=== PATIENT | male | born 1945 | race African-American/Black ===

== ENCOUNTER 2024-10-04 11:43 | Emergency (ER) | payer OTHER, MEDICAID ==
[~2024-10-04] VITALS: Ht 180.3 cm; Wt 95.5 kg
[2024-10-04 12:15] LABS: Basophils # (auto) 0.3 10 ^3/uL (0-0.2); Basophils % (auto) 1.8 % (0.0-2.0); Eosinophils # (auto) 0.3 10 ^3/uL (0-0.8); Eosinophils % (auto) 1.7 % (0.0-7.0); Hematocrit 42.3 % (41.0-53.0); Hemoglobin 13.2 g/dL (13.5-17.5); Lymphocytes # (auto) 2.7 10 ^3/uL (0.4-5.4); Lymphocytes % (auto) 18.1 % (10.0-50.0); Mean Corpuscular Hemoglobin 22.7 pg (28.0-32.0); Mean Corpuscular Hgb Conc. 31.3 g/dL (32.0-36.0); Mean Corpuscular Volume 72.5 fL (80.0-100.0); Monocytes # (auto) 1.4 10 ^3/uL (0-1.3); Neutrophils # (auto) 10.5 10 ^3/uL (1.6-8.6); Neutrophils % (auto) 69.4 % (37.0-80.0); Nucleated Red Blood Cells % 0.1 %; Platelet Count (auto) 239 10^3/uL (140-450); Red Blood Cells 5.84 10^6/uL (4.5-5.90); White Blood Cell 15.1 10^3/uL (4.4-10.8)
[2024-10-04 12:16] LABS: Red Cell Distribution Width 21.8 % (11.8-14.3)
--- NOTE | 2024-10-04 12:21 | ED.PDOC ---
Eye-HPI HPI Comments 79y F who presents to the ED for chief complaint of eye pain. - pt states he has been having throbbing pain in L eye pain since yesterday AM - pt states he started to have L eye pain again this AM and came to [facility] urgent care for further evaluation - pt states he was referred to [facility] from urgent care for evaluation for eye pre ssure in his L eye - pt in the ED, denies any changes in vision, but states he has pain when attempting to read - pt otherwise is alert and oriented x4 and no changes in vision, speech or gait is noted - pt also had cataracts surgery 2 days prior - pt otherwise denies any other symptoms at this time PMH: HTN, HLD, PSH: L leg surgery, cataracts meds: ASA, atenolol, amlodipine allergies: nkda social history: denies ETOH use, denies tobacco use, denies drug use Chief Complaint: Eye Problem Time Seen by MD: 12:00 Reviewed Notes: Medications, Allergies Allergies: Coded Allergies: NSAIDs (Verified Allergy, Unknown, 10/04/24) Information Source: Patient Mode of Arrival: Ambulatory Brought in by: self Was a procedure done? Was a procedure done?: No X-Ray, Labs, Meds, VS Vital Signs Date Time Temp Pulse Resp B/P (MAP) Pulse Ox O2 Delivery O2 Flow Rate FiO2 10/04/24 16:20 68 16 97 Room Air* 0 21 10/04/24 16:20 98.5 68 16 158/73 (101) 97 98.5 10/04/24 12:29 97.9 60 16 149/80 (103) 97 97.9 Lab Test 10/04/24 16:15 10/04/24 15:33 10/04/24 12:52 10/04/24 12:04 Range/Units Urine Color Pending Urine Clarity Pending Urine pH Pending Urine Specific [place] Pending Urine Protein Pending Urine Ketones Pending Urine Blood Pending Urine Nitrite Pending Urine Bilirubin Pending Urine Urobilinogen Pending Urine Leukocyte Esterase Pending Urine RBC Pending Urine Microscopic WBC Pending Urine Squamous Epithelial Cells Pending Urine Bacteria Pending Urine Glucose Pending Troponin I High Sensitivity 9 8 10 </=54 ng/L White Blood Count 15.1 H 4.4-10.8 10^3/uL Red Blood Count 5.84 4.5-5.90 10^6/uL Hemoglobin 13.2 L 13.5-17.5 g/dL Hematocrit 42.3 41.0-53.0 % Mean Corpuscular Volume 72.5 L 80.0-100.0 fL Mean Corpuscular Hemoglobin 22.7 L 28.0-32.0 pg Mean Corpuscular Hemoglobin Concent 31.3 L 32.0-36.0 g/dL Red Cell Distribution Width 21.8 H 11.8-14.3 % Platelet Count 239 140-450 10^3/uL Mean Platelet Volume 8.4 6.9-10.8 fL Neutrophils (%) (Auto) 69.4 37.0-80.0 % Lymphocytes (%) (Auto) 18.1 10.0-50.0 % Monocytes (%) (Auto) 9.0 0.0-12.0 % Eosinophils (%) (Auto) 1.7 0.0-7.0 % Basophils (%) (Auto) 1.8 0.0-2.0 % Neutrophils # (Auto) 10.5 H 1.6-8.6 10 ^3/uL Lymphocytes # (Auto) 2.7 0.4-5.4 10 ^3/uL Monocytes # (Auto) 1.4 H 0-1.3 10 ^3/uL Eosinophils # (Auto) 0.3 0-0.8 10 ^3/uL Basophils # (Auto) 0.3 H 0-0.2 10 ^3/uL Nucleated Red Blood Cells 0.1 % Lactic Acid Level 1.6 0.4-2.0 mmol/L Test 10/04/24 11:50 Range/Units Sodium Level 141 136-145 mmol/L Potassium Level 4.3 3.5-5.1 mmol/L Chloride Level 112 H 98-107 mmol/L Carbon Dioxide Level 23 20-31 mmol/L Anion Gap 6 5-15 Blood Urea Nitrogen 21 9-23 mg/dL Creatinine 3.17 H 0.700-1.30 mg/dL Glomerular Filtration Rate Calc 19 >90 mL/min BUN/Creatinine Ratio 6.6 L 10.0-20.0 Serum Glucose 97 74-106 mg/dL Calcium Level 9.9 8.7-10.4 mg/dL Total Bilirubin 0.4 0.2-1.0 mg/dL Aspartate Amino Transferase (AST) 16 13-40 U/L Alanine Aminotransferase (ALT) 15 7-40 U/L Alkaline Phosphatase 120 H 46-116 U/L Total Protein 7.4 5.7-8.2 g/dL Albumin 4.4 3.2-4.8 g/dL [facility] [id number] [facility] [address] Ph: [phone] DIAGNOSTIC IMAGING Diagnostic Imaging Report : [id number] Signed PATIENT: DIONTE COREA ACCT: [id number] UNIT: [id number] : 1945 LOC: ER ROOM / BED: / AGE / SEX: 79 / M ADM STATUS: REG ER SERVICE 1150 ORDERING PHYSICIAN: AMY WESLEY DO PROCEDURE(s): CXRP - CHEST PORTABLE REASON: htn ORDER NUMBER(s): [id number], ACCESSION NUMBER(s): [id number] CHEST RADIOGRAPH Indication: htn Technique: Single frontal view of the chest was obtained Comparison: None FINDINGS: Lines and Tubes: None Lungs: No focal consolidation. Pleura: No effusion. No pneumothorax. Cardiomediastinal contours: Unremarkable Bones: No acute osseous abnormality. IMPRESSION: 1. No acute cardiopulmonary disease. ATED BY: ISAÍAS CRESPO MD DICTATED DATE/TIME: 10/04/24 1237 SIGNED BY: ISAÍAS CRESPO MD SIGNED DATE/TIME: 10/04/24 1237 CC: Time of 1ST Reevaluation: 15:17 (The case was discussed with the [facility] admitting team (HPI, physical exam, labs and diagnostic tests that were available at the time of disposition, ED course, treatment plan) on the phone. They attempted to transfer the patient to their facility but the ER is closed. They contacted their business solutions architect on-call Dr. Fowler. They said they have arrange an outpatient follow up tomorrow in clinic with the business solutions architect. Authorization #[id number] Dr. Quintero. They also communicated to us that the patient creatinine level is at baseline.Visual acuity test was performed .Stan-Pen is not working in our facility.) Patient Education/Counseling: Diagnosis, Treatment Family Education/Counseling: No Family Present Departure 1 Departure Time of Disposition: 17:17 Impression: Primary Impression: Left eye complaint Disposition: HOME / SELF CARE / HOMELESS Condition: Stable Additional Instructions: Additional instructions: You MUST follow-up with your primary care/family doctor in 1 to 2 days. If you are unable to see your primary care/family doctor, please return to our emergency room for re-assessment and re-evaluation in 1 to 2 days. Return to the emergency room here in our facility or to the nearest ER [facility] if your symptoms change or worsen. CONSULTATIONS: you MUST Follow-up for consultation as soon as possible with: business solutions architect Dr. Fowler with [facility] tomorrow morning. They will call you to set up the appointment You MUST call the consultants office yourself to make an appointment. You may need to arrange that through your insurance and/or your primary/family doctor. If you are unable to see the media sales consultant in 1 to 2 days, you must return to our emergency room (or any other ER of your choice) for re-assessment and re- evaluation. Adequate fluid hydration. Monitoring blood pressure at home at least 3 times a day. e-Prescriptions Moxifloxacin Hydrochloride (Moxifloxacin HCl) 0.5 % Yasmin 0.5 % OP Q8HR for 7 Days, #10 ML Apply one drop to the affected eye every 8 hours while awake for seven days. Prov: AMY WESLEY DO 10/04/24 Discharged With: Self Critical Care Note Critical Care Time?: No I personally scribed for AMY WESLEY DO ([email or web address]) on 10/04/24 at 12:21. Electronically submitted by Carmelo Ramsay ([employer]). I personally scribed for AMY WESLEY DO ([email or web address]) on 10/04/24 at 12:45. Electronically submitted by Carmelo Ramsay ([employer]). I personally scribed for AMY WESLEY DO ([email or web address]) on 10/04/24 at 14:39. Electronically submitted by Carmelo Ramsay ([employer]). AMY WESLEY DO October 04, 2024 12:21
[2024-10-04 12:31] LABS: Alanine Aminotransferase 15 U/L (7-40); Albumin 4.4 g/dL (3.2-4.8); Anion Gap 6 (5-15); Aspartate Aminotransferase 16 U/L (13-40); BUN/Creatinine Ratio 6.6 (10.0-20.0); Blood Urea Nitrogen 21 mg/dL (9-23); Calcium 9.9 mg/dL (8.7-10.4); Carbon Dioxide 23 mmol/L (20-31); Glucose 97 mg/dL (74-106); Potassium 4.3 mmol/L (3.5-5.1); Sodium 141 mmol/L (136-145); Total Protein 7.4 g/dL (5.7-8.2)
[2024-10-04 12:32] LABS: Bilirubin, Total 0.4 mg/dL (0.2-1.0)
[2024-10-04 12:35] LABS: Alkaline Phosphatase 120 U/L (46-116); Chloride 112 mmol/L (98-107)
--- NOTE | 2024-10-04 12:39 | DVH ---
CHEST RADIOGRAPH Indication: htn Technique: Single frontal view of the chest was obtained Comparison: None FINDINGS: Lines and Tubes: None Lungs: No focal consolidation. Pleura: No effusion. No pneumothorax. Cardiomediastinal contours: Unremarkable Bones: No acute osseous abnormality. IMPRESSION: 1. No acute cardiopulmonary disease.
[2024-10-04 16:20] VITALS: PULSE 68; RESP 16; O2SAT 97
[2024-10-04 17:10] LABS: Urine Bacteria None Seen /hpf (None Seen)
[2024-10-04 17:21] LABS: Urine Blood Negative /uL (Negative); Urine Clarity Clear (Clear); Urine Color Yellow (Yellow); Urine Hyaline Cast FEW /lpf (0 - 2); Urine Mucus FEW (None Seen); Urine Protein, UAD 2+ (Negative); Urine Specific Gravity 1.018 (1.001-1.035); Urine Squamous Epithelial Cell FEW /hpf (<5); Urine Urobilinogen Normal (Negative); Urine WBC 1 /HPF (0-3)
[2024-10-04] MEDS ORDERED: MOXI0.5D9 OP (17:22)
[2024-10-04] MEDS ORDERED: MOXI0.5S3 OP (17:23)
[2024-10-04 17:52] VITALS: BP 154/85; PULSE 66; RESP 17; TEMP 97.7; O2SAT 99
== END 2024-10-04 18:00 | disposition home or self-care (01) ==
LOC: ER 11:50
DX: H57.12 Ocular pain, left eye (principal); R07.9 Chest pain, unspecified; I10 Essential (primary) hypertension; E78.5 Hyperlipidemia, unspecified; Z88.6 Allergy status to analgesic agent
CPT/HCPCS: 36415; 71045; 80053; 81001; 83605; 84484; 85025